=== PATIENT | female | born 2000 | race Caucasian/White ===

== ENCOUNTER 2018-12-22 21:21 | Emergency (ER) | payer MEDICAID, OTHER ==
[2018-12-22] MEDS: KETOROLAC 30 MG INJ IV (22:15)
[2018-12-22] MEDS: METOCLOPRAMIDE 10 MG INJ IV (22:16)
[2018-12-22] MEDS: DIPHENHYDRAMINE 50 MG INJ IV (22:16)
[2018-12-22] MEDS: LORAZEPAM 0.5 MG TAB PO (22:16)
== END 2018-12-23 01:10 | disposition home or self-care (01) ==
LOC: E/R 12-23 01:10
DX: F41.9 Anxiety disorder, unspecified (principal)
CPT/HCPCS: 81025; 96374; 96375; 99284-25

== ENCOUNTER 2018-12-25 20:18 | Emergency (ER) | payer MEDICAID ==
[2018-12-25] MEDS: LORAZEPAM 0.5 MG TAB PO (20:55)
== END 2018-12-25 22:30 | disposition home or self-care (01) ==
LOC: FTE 22:30
DX: F41.9 Anxiety disorder, unspecified (principal); R51 Headache
CPT/HCPCS: 70450; 81025; 99284-25

== ENCOUNTER 2019-03-07 20:52 | Emergency (ER) | payer MEDICAID ==
[2019-03-07 23:38] LABS: URINE BLOOD (Dip) POC Trace-lysed (NEGATIVE); URINE GLUCOSE (Dip) POC Negative (NEGATIVE); URINE KETONES (Dip) POC Negative (NEGATIVE); URINE LEUKOCYTE EST (Dip) POC Trace (NEGATIVE); URINE NITRITE (Dip) POC Positive (NEGATIVE); URINE TOTAL PROTEIN POC Negative (NEGATIVE)
[2019-03-08] MEDS: ONDANSETRON 4 MG INJ IV (00:34)
[2019-03-08] MEDS: KETOROLAC 15 MG INJ IV (00:34)
[2019-03-08] MEDS: SOD CHLORIDE 0.9% 1,000 ML IV (00:35)
[2019-03-08 00:47] LABS: WHITE BLOOD COUNT 5.6 10^3/ul (4.8-10.8)
[2019-03-08 00:47] LABS: ADD MAN DIFF? NO; BASOPHILS % 0.4 % (0.0-2.0); EOSINOPHILS % 0.7 % (0.0-7.0); HEMATOCRIT 39.1 % (37.0-47.0); LYMPHOCYTES # 1.8 10^3/ul (0.8-2.9); LYMPHOCYTES % 32.6 % (18.0-55.0); MEAN CORPUSCULAR HEMOGLOBIN 29.7 pg (29.0-33.0); MEAN CORPUSCULAR HGB CONC 33.2 g/dl (32.0-37.0); MEAN CORPUSCULAR VOLUME 89.5 fl (72.0-104.0); MEAN PLATELET VOLUME 11.5 fl (7.4-10.4); MONOCYTE # 0.4 10^3/ul (0.3-0.9); MONOCYTES % 7.4 % (0.0-13.0); NEUTROPHIL # 3.3 10^3/ul (1.6-7.5); NEUTROPHILS % 58.5 % (30.0-74.0); PLATELET COUNT 230 10^3/UL (140-415); RED BLOOD COUNT 4.37 10^6/ul (4.20-5.40); RED CELL DISTRIBUTION WIDTH 12.2 % (11.5-14.5)
[2019-03-08 01:06] LABS: ALANINE AMINOTRANSFERASE 16 IU/L (13-69); ALBUMIN 4.4 g/dl (3.3-4.9); ALBUMIN/GLOBULIN RATIO 1.62; ALKALINE PHOSPHATASE 69 IU/L (42-121); ANION GAP 7 (5-13); ASPARTATE AMINO TRANSFERASE 24 IU/L (15-46); BILIRUBIN,INDIRECT 0.5 mg/dl (0-1.1); BILIRUBIN,TOTAL 0.5 mg/dl (0.2-1.3); BLOOD UREA NITROGEN 14 mg/dl (7-20); CALCIUM 9.1 mg/dl (8.4-10.2); CARBON DIOXIDE 28 mmol/L (21-31); CHLORIDE 105 mmol/L (97-110); CREATININE 0.59 mg/dl (0.44-1.00); Estimated GFR > 60 mL/min (>60); GLUCOSE 102 mg/dl (70-220); LIPASE 64 U/L (23-300); POTASSIUM 4.2 mmol/L (3.5-5.1); SODIUM 140 mmol/L (135-144); TOTAL PROTEIN 7.1 g/dl (6.1-8.1)
[2019-03-08 01:09] LABS: INR 0.92; PARTIAL THROMBOPLASTIN TIME 36.5 Sec (23.0-35.0); PROTIME 12.5 Sec (11.9-14.9)
[2019-03-08 01:50] LABS: ADD UMIC YES; UR ASCORBIC ACID NEGATIVE (NEGATIVE); UR BACTERIA MODERATE /HPF (NONE SEEN); UR BILIRUBIN (Dip) NEGATIVE (NEGATIVE); UR BLOOD (Dip) 1+ mg/dL (NEGATIVE); UR CLARITY SLIGHTLY CLOUDY (CLEAR); UR COLOR YELLOW (YELLOW); UR GLUCOSE (Dip) NEGATIVE (NEGATIVE); UR KETONES (Dip) NEGATIVE (NEGATIVE); UR LEUKOCYTE ESTERASE (Dip) 1+ Leu/ul (NEGATIVE); UR MUCUS FEW /HPF (NONE SEEN); UR NITRITE (Dip) POSITIVE (NEGATIVE); UR RBC 2 /HPF (0-5); UR SPECIFIC GRAVITY (Dip) 1.019 (1.003-1.030); UR TOTAL PROTEIN (Dip) NEGATIVE (NEGATIVE); UR UROBILINOGEN (Dip) 2+ mg/dL (NEGATIVE); UR WBC 3 /HPF (0-5)
== END 2019-03-08 02:55 | disposition home or self-care (01) ==
LOC: FTE 03-08 02:55
DX: R10.2 Pelvic and perineal pain (principal); R11.0 Nausea
CPT/HCPCS: 36415; 74176; 76856; 80053; 81001; 81003; 81025; 83690; 85025; 85610; 85730; 96374; 96375; 99285-25